=== PATIENT | male | born 1940 | race Hispanic/Latino ===

== ENCOUNTER 2017-04-17 10:07 | Emergency (ER) | payer OTHER, MEDICARE ==
[2017-04-17 11:00] LABS: BASOPHILS % (AUTO) 0.3 % (0.0-5.0); EOSINOPHILS % (AUTO) 2.1 % (0.0-8.0); HEMATOCRIT 34.2 % (42-54); MEAN CORPUSCULAR HEMOGLOBIN 28.1 pg (27.0-33.0); MEAN CORPUSCULAR VOLUME 82.8 fL (79-99); MONOCYTES % (AUTO) 11.7 % (3.0-13.0); NEUTROPHILS % (AUTO) 80.5 % (40.0-77.0); PLATELET COUNT (AUTO) 233 K/uL (130-400); RED BLOOD CELL COUNT(AUTO) 4.13 MIL/uL (4.50-6.20); RED CELL DISTRIBUTION WIDTH 16.1 % (11.0-15.5); WHITE BLOOD COUNT (AUTO) 10.7 K/uL (4.8-10.8)
[2017-04-17 11:01] LABS: LYMPHOCYTES % (AUTO) 5.4 % (21.0-51.0)
[2017-04-17 11:12] LABS: CREATININE 2.3 mg/dL (0.5-1.5); POTASSIUM 4.6 mmol/L (3.5-5.1)
[2017-04-17 11:17] LABS: ALBUMIN 3.4 g/dL (3.5-5.0); BILIRUBIN,TOTAL 0.7 mg/dL (0.2-1.0); TOTAL PROTEIN, SERUM 7.7 g/dL (6.0-8.3)
[2017-04-17] MEDS ORDERED: SODIUM CHLORIDE 0.9% 1000ML 1,000 ML IV ONE (12:45)
== END 2017-04-17 14:13 | disposition home or self-care (01) ==
LOC: EDH 10:07
DX: J20.9 Acute bronchitis, unspecified (principal); R53.1 Weakness; I10 Essential (primary) hypertension; K21.9 Gastro-esophageal reflux disease without esophagitis
CPT/HCPCS: 36415; 80053; 85025; 96360; 99284; J7030

== ENCOUNTER → 2018-11-22 | Outpatient (CLI) | payer OTHER, MEDICARE | END | disposition home or self-care (01) | LOC: SHCH 10:28 | PROVIDERS: ATTEND Internal Medicine Cardiovascular Disease | DX: I87.2 Venous insufficiency (chronic) (peripheral) (principal); R60.9 Edema, unspecified | CPT/HCPCS: 93970 ==

== ENCOUNTER → 2020-10-03 | Outpatient (CLI) | payer OTHER, MEDICARE ==
[~2020-10-03] MED LIST: AEC81 PO; AMIL5TAB8 PO; ATOR20TA65 PO; BISA5TAB12 PO; CARV6.25 PO; CHLO25TA3 PO; CYCL30DR OU; ESOM40CA54 PO; HYDR12.54 PO; LINA145C PO; LORA10CA9 PO; LOTE55OS OU; LUBI24CA2 PO; PIND5 PO; PREG225C7 PO
== END | disposition home or self-care (01) ==
LOC: SHCH 08:47
PROVIDERS: ATTEND Internal Medicine Cardiovascular Disease
DX: L89.620 Pressure ulcer of left heel, unstageable (principal)
CPT/HCPCS: 93925

== ENCOUNTER → 2021-01-20 | Outpatient (CLI) | payer OTHER, MEDICARE | END | disposition home or self-care (01) | LOC: RAH 12:34 | PROVIDERS: ATTEND Orthopaedic Surgery | DX: M16.11 Unilateral primary osteoarthritis, right hip (principal) | CPT/HCPCS: 73700 ==

== ENCOUNTER 2021-06-08 05:55 | Observation (INO) | payer OTHER, MEDICARE ==
[2021-06-03 12:29] LABS: BASOPHILS % (AUTO) 0.8 % (0.0-5.0); EOSINOPHILS % (AUTO) 12.4 % (0.0-8.0); HEMATOCRIT 32.3 % (42-54); LYMPHOCYTES % (AUTO) 17.8 % (21.0-51.0); MEAN CORPUSCULAR HEMOGLOBIN 28.6 pg (27.0-33.0); MEAN CORPUSCULAR HGB CONC 32.5 g/dL (32.0-36.0); MONOCYTES % (AUTO) 9.6 % (3.0-13.0); NEUTROPHILS % (AUTO) 58.9 % (40.0-77.0); PLATELET COUNT (AUTO) 246 K/uL (130-400); RED BLOOD CELL COUNT(AUTO) 3.67 MIL/uL (4.50-6.20); RED CELL DISTRIBUTION WIDTH 15.6 % (11.0-15.5); WHITE BLOOD COUNT (AUTO) 7.8 K/uL (4.8-10.8)
[2021-06-03 12:35] LABS: CREATININE 1.8 mg/dL (0.5-1.5)
[2021-06-03 12:37] LABS: INR 1.05 (0.85-1.15); PROTHROMBIN TIME 11.4 SEC (9.6-11.6)
[2021-06-03 12:38] LABS: PARTIAL THROMBOPLASTIN TIME 29.6 SEC (26.3-35.5)
[2021-06-05 12:53] VITALS: BP 185/77
[2021-06-08] VITALS (18 sets, daily range): BP systolic 129–157; BP diastolic 52–85
[~2021-06-08] VITALS: Ht 177.8 cm; Wt 107.9 kg
[~2021-06-08 05:55] MED LIST changes: -AEC81 PO; -AMIL5TAB8 PO; +AMLO-258 PO; -BISA5TAB12 PO; -CARV6.25 PO; -CHLO25TA3 PO; -CYCL30DR OU; -ESOM40CA54 PO; +FLUO10CA21 PO; -LINA145C PO; -LORA10CA9 PO; -LOTE55OS OU; -LUBI24CA2 PO; +MEMA5TAB42 PO; +RIVA2.5T PO; +TAMS-1 PO; +TYL3B PO
[2021-06-08] MEDS ORDERED: TRANEXAMIC ACID 3,000 MG in 0.9% NACL 250ML 250 ML TP SCH (06:00)
[2021-06-08] MEDS ORDERED: CEFAZOLIN SODIUM 1 GM VIAL IVP SCH (06:00)
[2021-06-08] MEDS: LACTATED RINGERS 1000ML 1,000 ML IV SCH ×2 (06:21→13:00)
[2021-06-08] MEDS ORDERED: TRANEXAMIC ACID 1000MG/10ML ONE (07:05)
[2021-06-08] MEDS ORDERED: ROPIVACAINE 0.5% 5MG/ML 30ML IJ ONE (07:22)
[2021-06-08] MEDS ORDERED: PROPOFOL 1000 MG/100 ML 200 ML IV ONE (07:22)
[2021-06-08] MEDS ORDERED: LIDOCAINE PF 100MG/5ML (2%) SYRINGE 5ML ONE (07:27)
[2021-06-08] MEDS ORDERED: MIDAZOLAM HCL 1 MG/ML 2ML VIAL ONE (07:27)
[2021-06-08] MEDS ORDERED: ROCURONIUM 10MG/1ML SYR 10 MG/ML ML ONE ×2 (07:28→08:21)
[2021-06-08] MEDS ORDERED: PROPOFOL 10 MG/ML 20ML VIAL IV ONE (07:28)
[2021-06-08] MEDS: 0.9%NACL 1000ML 1,000 ML IV SCH ×2 (08:00→18:07)
[2021-06-08] MEDS ORDERED: HYDROCODONE/ACETAMINOPHEN 10/325 MG TAB PO PRN (08:00)
[2021-06-08] MEDS: ACETAMINOPHEN 500 MG TABLET PO SCH ×2 (08:00→15:52)
[2021-06-08] MEDS ORDERED: MORPHINE 4 MG SYG IVP PRN (08:00)
[2021-06-08] MEDS ORDERED: KCL 20 MEQ ERTAB PO PRN (08:00)
[2021-06-08] MEDS ORDERED: ONDANSETRON 4MG INJ IVP PRN (08:00)
[2021-06-08] MEDS ORDERED: LIDOCAINE HCL-MPF 1% 2ML VIAL IV PRN (08:00)
[2021-06-08] MEDS ORDERED: HYDROCODONE/ACETAMINOPHEN 5/325 MG TAB PO PRN (08:00)
[2021-06-08] MEDS ORDERED: POTASSIUM CHLORIDE 20MEQ/100ML 100 ML IV PRN (08:00)
[2021-06-08] MEDS ORDERED: POTASSIUM CHLORIDE 10% ELIXIR 20 MEQ/15 ML UDCUP PO PRN (08:00)
[2021-06-08] MEDS: ASPIRIN 81 MG EC TAB PO SCH ×2 (09:00→21:14)
[2021-06-08] MEDS: HYDROCHLOROTHIAZIDE 25 MG TABLET PO SCH (09:00)
[2021-06-08] MEDS: MEMANTINE HCL 5 MG TABLET PO SCH (09:00)
[2021-06-08] MEDS: FLUOXETINE HCL 10 MG CAPSULE PO SCH (09:00)
[2021-06-08] MEDS: AMLODIPINE 5 MG TAB PO SCH (09:00)
[2021-06-08] MEDS: PREGABALIN 25 MG CAP PO SCH ×2 (09:00→21:15)
[2021-06-08] MEDS: POLYETHYLENE GLYCOL 3350 17 GM POWD.PACK PO SCH (09:00)
[2021-06-08] MEDS: FAMOTIDINE 20MG TAB PO SCH (09:00)
[2021-06-08] MEDS: PINDOLOL 5 MG TAB PO SCH ×2 (09:00→21:00)
[2021-06-08] MEDS ORDERED: PHENYLEPHRINE HCL 10 MG/ML 1ML VIAL IV ONE (09:19)
[2021-06-08] MEDS ORDERED: NEOSTIGMINE 5MG/5ML SYR IV ONE (09:58)
[2021-06-08] MEDS ORDERED: GLYCOPYRROLATE 1 MG/5 ML SYRINGE ONE (09:58)
[2021-06-08] MEDS ORDERED: DEXAMETHASONE SOD PHOSPHATE 10MG/ML 1ML VIAL ONE (10:02)
[2021-06-08] MEDS: TRAMADOL HCL 50 MG TABLET PO SCH ×2 (12:00→18:08)
[2021-06-08] MEDS: CEFAZOLIN SODIUM 1 GM VIAL IVP SCH ×2 (15:52→21:14)
[2021-06-08] MEDS: TAMSULOSIN HCL 0.4 MG CAP.ER.24H PO SCH (21:14)
[2021-06-09] VITALS: BP 149/65
[2021-06-09] MEDS: ACETAMINOPHEN 500 MG TABLET PO SCH ×3 (00:15→16:46)
[2021-06-09] MEDS: TRAMADOL HCL 50 MG TABLET PO SCH ×4 (00:16→18:36)
[2021-06-09 04:00] VITALS: BP 121/50
[2021-06-09] MEDS: 0.9%NACL 1000ML 1,000 ML IV SCH (04:00)
[2021-06-09 04:29] LABS: HEMATOCRIT 30.4 % (42-54); MEAN CORPUSCULAR HEMOGLOBIN 27.7 pg (27.0-33.0); MEAN CORPUSCULAR HGB CONC 31.9 g/dL (32.0-36.0); MEAN CORPUSCULAR VOLUME 86.9 fL (79-99); RED BLOOD CELL COUNT(AUTO) 3.5 MIL/uL (4.50-6.20); RED CELL DISTRIBUTION WIDTH 14.9 % (11.0-15.5); WHITE BLOOD COUNT (AUTO) 14.5 K/uL (4.8-10.8)
[2021-06-09 04:44] LABS: CREATININE 1.8 mg/dL (0.5-1.5); POTASSIUM 3.8 mmol/L (3.5-5.1)
[2021-06-09 07:59] VITALS: BP 143/56
[2021-06-09] MEDS: FAMOTIDINE 20MG TAB PO SCH (08:42)
[2021-06-09] MEDS: FLUOXETINE HCL 10 MG CAPSULE PO SCH (08:42)
[2021-06-09] MEDS: PREGABALIN 25 MG CAP PO SCH ×2 (08:42→20:52)
[2021-06-09] MEDS: AMLODIPINE 5 MG TAB PO SCH (08:42)
[2021-06-09] MEDS: MEMANTINE HCL 5 MG TABLET PO SCH (08:42)
[2021-06-09] MEDS: POLYETHYLENE GLYCOL 3350 17 GM POWD.PACK PO SCH (08:43)
[2021-06-09] MEDS: HYDROCHLOROTHIAZIDE 25 MG TABLET PO SCH (08:43)
[2021-06-09] MEDS: ASPIRIN 81 MG EC TAB PO SCH ×2 (08:43→20:52)
[2021-06-09 11:58] VITALS: BP 126/51
[2021-06-09] MEDS: PINDOLOL 5 MG TAB PO SCH ×2 (12:24→20:54)
[2021-06-09 16:38] VITALS: BP 132/63
[2021-06-09 20:00] VITALS: BP 127/52
[2021-06-09] MEDS: TAMSULOSIN HCL 0.4 MG CAP.ER.24H PO SCH (20:52)
[2021-06-10] VITALS: BP 154/69
[2021-06-10] MEDS: ACETAMINOPHEN 500 MG TABLET PO SCH ×3 (00:26→16:00)
[2021-06-10] MEDS: TRAMADOL HCL 50 MG TABLET PO SCH ×4 (00:26→17:35)
[2021-06-10 05:02] VITALS: BP 117/49
[2021-06-10 08:00] VITALS: BP 131/58
[2021-06-10] MEDS: AMLODIPINE 5 MG TAB PO SCH ×2 (09:00→10:36)
[2021-06-10] MEDS: HYDROCHLOROTHIAZIDE 25 MG TABLET PO SCH ×2 (09:00→10:36)
[2021-06-10] MEDS: PREGABALIN 25 MG CAP PO SCH (09:00)
[2021-06-10] MEDS: PINDOLOL 5 MG TAB PO SCH ×2 (09:00→10:36)
[2021-06-10] MEDS: ASPIRIN 81 MG EC TAB PO SCH (10:35)
[2021-06-10] MEDS: FAMOTIDINE 20MG TAB PO SCH (10:36)
[2021-06-10] MEDS: MEMANTINE HCL 5 MG TABLET PO SCH (10:36)
[2021-06-10] MEDS: FLUOXETINE HCL 10 MG CAPSULE PO SCH (10:36)
[2021-06-10 11:20] VITALS: BP 96/51
[2021-06-10 11:51] VITALS: BP 118/60
[2021-06-10 16:32] VITALS: BP 131/58
[2021-06-10] MEDS: POLYETHYLENE GLYCOL 3350 17 GM POWD.PACK PO SCH (17:08)
[2021-06-11] MEDS ORDERED: BISACODYL 10 MG SUPP.RECT RC PRN (08:00)
== END 2021-06-10 18:40 ==
LOC: DAH 05:55 → DAHIP 05:56 → DAH 05:56 → 4BH 12:00
PROVIDERS: ADMIT Orthopaedic Surgery; ATTEND Orthopaedic Surgery
DX: M17.11 Unilateral primary osteoarthritis, right knee (principal); Z20.822 Contact with and (suspected) exposure to COVID-19; M19.90 Unspecified osteoarthritis, unspecified site; I12.9 Hypertensive chronic kidney disease with stage 1 through stage 4 chronic kidney disease, or unspecified chronic kidney disease; N18.9 Chronic kidney disease, unspecified; E78.00 Pure hypercholesterolemia, unspecified; Z79.82 Long term (current) use of aspirin; Z79.899 Other long term (current) drug therapy; Z98.890 Other specified postprocedural states
CPT/HCPCS: 27447; S2900; 36415; 64445; 64447; 64450; 76942; 80048; 85025; 85027; 85610; 85730; 87635; 87641; 93005; 96374; 96376; 97039; A4344; C9803; G0378; J0690; J1100; J2001; J2250; J2270; J2370; J2704; J2710; J2795; J3490; J7030; J7050; J7120

== ENCOUNTER → 2021-07-02 | Outpatient (CLI) | payer OTHER, MEDICARE | END | disposition home or self-care (01) | LOC: RAH 10:39 | PROVIDERS: ATTEND Orthopaedic Surgery | DX: R60.0 Localized edema (principal); M79.604 Pain in right leg; Z96.651 Presence of right artificial knee joint | CPT/HCPCS: 93971 ==

== ENCOUNTER 2022-01-29 18:01 | Emergency (ER) | payer OTHER, MEDICARE ==
[~2022-01-29] VITALS: Ht 167.6 cm; Wt 86.2 kg
[2022-01-29 18:35] LABS: BASOPHILS % (AUTO) 0.2 % (0.0-5.0); EOSINOPHILS % (AUTO) 2.3 % (0.0-8.0); HEMATOCRIT 33.9 % (42-54); LYMPHOCYTES % (AUTO) 8.6 % (21.0-51.0); MEAN CORPUSCULAR HEMOGLOBIN 28.2 pg (27.0-33.0); MEAN CORPUSCULAR HGB CONC 32.7 g/dL (32.0-36.0); MEAN CORPUSCULAR VOLUME 86.3 fL (79-99); MONOCYTES % (AUTO) 9.7 % (3.0-13.0); NEUTROPHILS % (AUTO) 78.4 % (40.0-77.0); PLATELET COUNT (AUTO) 301 K/uL (130-400); RED BLOOD CELL COUNT(AUTO) 3.93 MIL/uL (4.50-6.20); RED CELL DISTRIBUTION WIDTH 16.4 % (11.0-15.5); WHITE BLOOD COUNT (AUTO) 14.3 K/uL (4.8-10.8)
[2022-01-29 18:37] LABS: APPEARANCE,URINE CLEAR (CLEAR); BILIRUBIN,URINE NEGATIVE (NEGATIVE); COLOR,URINE COLORLESS (YELLOW); GLUCOSE, URINE (UA) NEGATIVE (NEGATIVE); KETONES,URINE NEGATIVE (NEGATIVE); LEUKOCYTE ESTERASE ,URINE NEGATIVE Leu/uL (NEGATIVE); NITRATE,URINE NEGATIVE (NEGATIVE); OCCULT BLOOD,URINE NEGATIVE (NEGATIVE); PROTEIN,URINE NEGATIVE (NEGATIVE); UROBILINOGEN,URINE 0.2 mg/dL (0.2-1.0)
[2022-01-29 18:43] LABS: CREATININE 2.1 mg/dL (0.5-1.5); POTASSIUM 4.3 mmol/L (3.5-5.1)
[2022-01-29 18:46] LABS: INR 0.96 (0.85-1.15); PROTHROMBIN TIME 10.5 SEC (9.6-11.6)
[2022-01-29 18:47] LABS: PARTIAL THROMBOPLASTIN TIME 27.3 SEC (26.3-35.5)
[2022-01-29 18:48] LABS: ALBUMIN 3.4 g/dL (3.5-5.0); TOTAL PROTEIN, SERUM 7.5 g/dL (6.0-8.3)
[2022-01-30 02:18] VITALS: BP 127/50
[2022-02-01] MEDS ORDERED: ATOR10 PO (19:46)
[2022-02-01] MEDS ORDERED: PREG225C7 PO (19:46)
[2022-02-01] MEDS ORDERED: DOXA8TAB81 PO (19:46)
[2022-02-01] MEDS ORDERED: FLUO10CA21 PO (19:46)
[2022-02-01] MEDS ORDERED: MEMA5TAB42 PO (19:46)
[2022-02-01] MEDS ORDERED: FURO20TA4 PO (19:46)
[2022-02-01] MEDS ORDERED: AMLO-258 PO (19:46)
[2022-02-01] MEDS ORDERED: PIND10TA2 PO (19:46)
[2022-02-05] MEDS ORDERED: AMOX1TAB16 PO (10:03)
[2022-02-05] MEDS ORDERED: IPRNEB IH (10:03)
[2022-02-05] MEDS ORDERED: PANT40TA PO (10:03)
== END 2022-01-30 02:30 | disposition home or self-care (01) ==
LOC: EDH 18:01
DX: S09.90XA Unspecified injury of head, initial encounter (principal); M54.2 Cervicalgia; W18.39XA Other fall on same level, initial encounter; Y93.89 Activity, other specified; Y92.89 Other specified places as the place of occurrence of the external cause; Y99.8 Other external cause status; Z20.822 Contact with and (suspected) exposure to COVID-19
CPT/HCPCS: 99285; 70450 ×2; 87635; 84484; 80053; 85025; 85610; 85730; 87804 ×2; 81003; 36415; 72125; 93005; C9803

== ENCOUNTER 2022-09-07 10:45 | Emergency (ER) | payer OTHER, MEDICARE ==
[~2022-09-07] VITALS: Ht 170.2 cm; Wt 90.7 kg
[~2022-09-07 10:45] MED LIST changes: +AMOX1TAB16 PO; +ATOR10 PO; -ATOR20TA65 PO; +DOXA8TAB81 PO; -HYDR12.54 PO; +IPRNEB IH; +PANT40TA PO; +PIND10TA2 PO; -PIND5 PO; -RIVA2.5T PO; -TAMS-1 PO; -TYL3B PO
[2022-09-07 11:30] LABS: BASOPHILS % (AUTO) 0.7 % (0.0-5.0); EOSINOPHILS % (AUTO) 7.9 % (0.0-8.0); HEMATOCRIT 36.7 % (42-54); LYMPHOCYTES % (AUTO) 20.8 % (21.0-51.0); MEAN CORPUSCULAR HGB CONC 31.9 g/dL (32.0-36.0); MEAN CORPUSCULAR VOLUME 87.8 fL (79-99); MONOCYTES % (AUTO) 10.4 % (3.0-13.0); NEUTROPHILS % (AUTO) 59.9 % (40.0-77.0); PLATELET COUNT (AUTO) 241 K/uL (130-400); RED BLOOD CELL COUNT(AUTO) 4.18 MIL/uL (4.50-6.20); RED CELL DISTRIBUTION WIDTH 15.8 % (11.0-15.5); WHITE BLOOD COUNT (AUTO) 7.1 K/uL (4.8-10.8)
[2022-09-07 11:44] LABS: ALBUMIN 4.1 g/dL (3.5-5.0); CREATININE 2.3 mg/dL (0.5-1.5)
[2022-09-07 12:25] LABS: APPEARANCE,URINE CLEAR (CLEAR); BILIRUBIN,URINE NEGATIVE (NEGATIVE); COLOR,URINE LIGHT-YELLOW (YELLOW); GLUCOSE, URINE (UA) NEGATIVE (NEGATIVE); KETONES,URINE NEGATIVE (NEGATIVE); LEUKOCYTE ESTERASE ,URINE NEGATIVE Leu/uL (NEGATIVE); NITRATE,URINE NEGATIVE (NEGATIVE); OCCULT BLOOD,URINE NEGATIVE (NEGATIVE); PROTEIN,URINE 30 mg/dL (NEGATIVE); UROBILINOGEN,URINE 0.2 mg/dL (0.2-1.0)
[2022-09-07 12:39] LABS: MUCUS,URINE RARE LPF (None Seen); WBC,URINE 0-1 /HPF (0-1)
[2022-09-07] MEDS ORDERED: CEFU500T67 PO (15:20)
[2022-09-07 17:00] VITALS: BP 179/81
== END 2022-09-07 17:05 | disposition home or self-care (01) ==
LOC: EDH 10:45
DX: R41.82 Altered mental status, unspecified (principal); E11.22 Type 2 diabetes mellitus with diabetic chronic kidney disease; N18.30 Chronic kidney disease, stage 3 unspecified; I48.91 Unspecified atrial fibrillation; E78.00 Pure hypercholesterolemia, unspecified; Z79.899 Other long term (current) drug therapy
CPT/HCPCS: 36415; 70450; 71045; 80053; 81001; 82550; 83880; 84145; 84484; 85025; 87088; 93005

== ENCOUNTER 2022-12-09 22:02 | Emergency (ER) | payer OTHER, MEDICARE ==
[~2022-12-09] VITALS: Ht 175.3 cm; Wt 104.3 kg
[~2022-12-09 22:02] MED LIST changes: +CEFU500T67 PO
[2022-12-09 22:28] LABS: BASOPHILS # (AUTO) 0.06 K/uL (0.00-0.20); BASOPHILS % (AUTO) 0.7 % (0.0-5.0); EOSINOPHILS # (AUTO) 0.64 K/uL (0.00-0.70); EOSINOPHILS % (AUTO) 7.2 % (0.0-8.0); HEMATOCRIT 33.9 % (42-54); IMMATURE GRANULOCYTE ABSOLUTE 0.03 K/uL (0-1); LYMPHOCYTES # (AUTO) 1.7 K/uL (1.0-4.8); LYMPHOCYTES % (AUTO) 18.9 % (21.0-51.0); MEAN CORPUSCULAR HGB CONC 31.6 g/dL (32.0-36.0); MEAN CORPUSCULAR VOLUME 88.7 fL (79-99); MONOCYTES % (AUTO) 10.9 % (3.0-13.0); NEUTROPHILS # (AUTO) 5.5 K/uL (1.8-7.7); PLATELET COUNT (AUTO) 203 K/uL (130-400); RED BLOOD CELL COUNT(AUTO) 3.82 MIL/uL (4.50-6.20); RED CELL DISTRIBUTION WIDTH 15.6 % (11.0-15.5); WHITE BLOOD COUNT (AUTO) 8.9 K/uL (4.8-10.8)
[2022-12-09] MEDS ORDERED: HYDRALAZINE 20MG/ML VIAL IV ONE (22:30)
[2022-12-09] MEDS ORDERED: APIX2.5T PO (22:35)
[2022-12-09] MEDS ORDERED: FURO20TA4 PO (22:35)
[2022-12-09] MEDS ORDERED: ASPI-1197 PO (22:35)
[2022-12-09] MEDS ORDERED: CARB1TAB35 PO (22:35)
[2022-12-09] MEDS ORDERED: DONE5TAB33 PO (22:35)
[2022-12-09 22:42] LABS: POTASSIUM 4.1 mmol/L (3.5-5.1)
[2022-12-09 22:46] LABS: ALBUMIN 3.6 g/dL (3.5-5.0); BILIRUBIN,TOTAL 0.4 mg/dL (0.2-1.0); TOTAL PROTEIN, SERUM 7.6 g/dL (6.0-8.3)
[2022-12-09 22:47] VITALS: O2SAT 99
[2022-12-09 23:10] LABS: B-TYPE NATRIURETIC PEPTIDE 228 pg/mL (0-100)
[2022-12-09 23:22] LABS: INR < 0.93 (0.85-1.15); PROTHROMBIN TIME 10.8 SEC (9.6-11.6)
[2022-12-09 23:24] LABS: PARTIAL THROMBOPLASTIN TIME 25.5 SEC (26.3-35.5)
[2022-12-10 00:53] VITALS: BP 164/74; PULSE 66; RESP 18
== END 2022-12-10 01:15 | disposition home or self-care (01) ==
LOC: EDH 22:02
DX: I10 Essential (primary) hypertension (principal); G44.209 Tension-type headache, unspecified, not intractable; I48.91 Unspecified atrial fibrillation; E11.9 Type 2 diabetes mellitus without complications; E78.00 Pure hypercholesterolemia, unspecified; Z79.01 Long term (current) use of anticoagulants; Z79.82 Long term (current) use of aspirin; Z79.899 Other long term (current) drug therapy
CPT/HCPCS: 99285; 96374; 70450; 71045; 84484; 80053; 83880; 85025; 85610; 85730; 36415; 93005 ×2; J0360

== ENCOUNTER 2023-12-02 15:30 | Inpatient (IN) | payer OTHER, MEDICARE ==
[~2023-12-02] VITALS: Ht 167.6 cm; Wt 104.8 kg
[~2023-12-02 15:30] MED LIST changes: +APIX2.5T PO; +ASPI-1197 PO; +CARB1TAB35 PO; +DONE5TAB33 PO; +FURO20TA4 PO; +MEMA5TAB16 PO; -MEMA5TAB42 PO; -PREG225C7 PO; +PREG225C8 PO
[2023-12-02 15:55] LABS: BASOPHILS # (AUTO) 0.05 K/uL (0.00-0.20); BASOPHILS % (AUTO) 0.7 % (0.0-5.0); EOSINOPHILS % (AUTO) 8.3 % (0.0-8.0); HEMATOCRIT 33.3 % (42-54); IMMATURE GRANULOCYTE ABSOLUTE 0.02 K/uL (0-1); LYMPHOCYTES # (AUTO) 1.3 K/uL (1.0-4.8); LYMPHOCYTES % (AUTO) 18.1 % (21.0-51.0); MEAN CORPUSCULAR HGB CONC 32.7 g/dL (32.0-36.0); MEAN CORPUSCULAR VOLUME 88.6 fL (79-99); MONOCYTES # (AUTO) 0.9 K/uL (0.1-1.0); MONOCYTES % (AUTO) 12.1 % (3.0-13.0); NEUTROPHILS # (AUTO) 4.4 K/uL (1.8-7.7); NEUTROPHILS % (AUTO) 60.5 % (40.0-77.0); PLATELET COUNT (AUTO) 258 K/uL (130-400); RED BLOOD CELL COUNT(AUTO) 3.76 MIL/uL (4.50-6.20); RED CELL DISTRIBUTION WIDTH 15.4 % (11.0-15.5); WHITE BLOOD COUNT (AUTO) 7.2 K/uL (4.8-10.8)
[2023-12-02 16:09] LABS: CREATININE 2.3 mg/dL (0.5-1.3); POTASSIUM 4.4 mmol/L (3.5-5.1)
[2023-12-02] MEDS: hydrALAZine 20MG/ML VIAL IV ONE ×2 (16:19→20:07)
[2023-12-02 17:20] LABS: APPEARANCE,URINE CLEAR (CLEAR); BILIRUBIN,URINE NEGATIVE (NEGATIVE); COLOR,URINE COLORLESS (YELLOW); GLUCOSE, URINE (UA) NEGATIVE (NEGATIVE); KETONES,URINE NEGATIVE (NEGATIVE); LEUKOCYTE ESTERASE ,URINE NEGATIVE Leu/uL (NEGATIVE); NITRATE,URINE NEGATIVE (NEGATIVE); OCCULT BLOOD,URINE MODERATE (NEGATIVE); PROTEIN,URINE NEGATIVE (NEGATIVE); UROBILINOGEN,URINE 0.2 mg/dL (0.2-1.0)
[2023-12-02 17:26] LABS: ADD UA MICROSCOPIC YES
[2023-12-02 17:30] LABS: RBC,URINE 0-1 /HPF (0-1); WBC,URINE 0-1 /HPF (0-1)
[2023-12-02] MEDS: NALoxone HCL 0.4 MG/1 ML ML IVP SCH (20:21)
[2023-12-02] MEDS: 0.9%NACL 1000ML 1,000 ML IV SCH (22:21)
[2023-12-02] MEDS: DOXYCYCLINE 100MG+NS 250ML 250 ML IV SCH (22:25)
[2023-12-02] MEDS: CEFTRIAXONE 2GM VIAL IVPB SCH (22:26)
[2023-12-02] MEDS ORDERED: ALBUTEROL 0.083% 2.5 MG/3 ML INH IH PRN (22:30)
[2023-12-02 22:41] LABS: AMPHET/METH SCREEN,URINE NEGATIVE (NEGATIVE); BARBITURATE SCREEN, URINE NEGATIVE (NEGATIVE); BENZODIAZEPINES SCREEN,URINE NEGATIVE (NEGATIVE); CANNABINOID SCREEN,URINE NEGATIVE (NEGATIVE); COCAINE SCREEN,URINE NEGATIVE (NEGATIVE); OPIATE SCREEN,URINE POSITIVE (NEGATIVE); PHENCYCLIDINE SCREEN,URINE NEGATIVE (NEGATIVE)
[2023-12-02 22:53] LABS: CREATININE,URINE RANDOM 32.33 mg/dL (30-135); PROTEIN,URINE RANDOM 9.2 mg/dL (0-11.9); SODIUM,URINE RANDOM 41 mmol/l (40-220)
[2023-12-02 22:54] LABS: CHLORIDE,URINE RANDOM 53 mmol/L (110-250); POTASSIUM,URINE RANDOM 17 mmol/L (25-125)
[2023-12-02] MEDS ORDERED: MIRA25TA5 PO (23:00)
[2023-12-02 23:19] LABS: INFLUENZA TYPE A Negative For Type A (NEGATIVE); INFLUENZA TYPE B Negative For Type B (NEGATIVE)
[2023-12-02] MEDS ORDERED: ACET-2079 PO (23:35)
[2023-12-02] MEDS ORDERED: APIX2.5T PO (23:35)
[2023-12-02] MEDS ORDERED: BACL10TA PO (23:35)
[2023-12-02] MEDS ORDERED: GABA-529 PO (23:35)
[2023-12-02 23:58] VITALS: PULSE 61; RESP 18; O2SAT 100
[2023-12-03] VITALS (9 sets, daily range): BP systolic 115–182; BP diastolic 62–104; PULSE 61–182; RESP 16–20; TEMP 98.9–100.1; O2SAT 98–99
[2023-12-03] MEDS ORDERED: DEXTROSE 50%-WATER 50 ML DISP.SYRIN IV PRN (03:30)
[2023-12-03] MEDS ORDERED: GLUCAGON 1MG KIT 1 MG ML IM PRN (03:30)
[2023-12-03 05:19] LABS: BASOPHILS # (AUTO) 0.03 K/uL (0.00-0.20); BASOPHILS % (AUTO) 0.3 % (0.0-5.0); EOSINOPHILS # (AUTO) 0.23 K/uL (0.00-0.70); EOSINOPHILS % (AUTO) 2.2 % (0.0-8.0); HEMATOCRIT 32.6 % (42-54); IMMATURE GRANULOCYTE ABSOLUTE 0.04 K/uL (0-1); LYMPHOCYTES # (AUTO) 1.4 K/uL (1.0-4.8); LYMPHOCYTES % (AUTO) 13.1 % (21.0-51.0); MEAN CORPUSCULAR HEMOGLOBIN 28.3 pg (27.0-33.0); MEAN CORPUSCULAR HGB CONC 32.5 g/dL (32.0-36.0); MEAN CORPUSCULAR VOLUME 87.2 fL (79-99); MONOCYTES # (AUTO) 1.1 K/uL (0.1-1.0); MONOCYTES % (AUTO) 10.1 % (3.0-13.0); NEUTROPHILS # (AUTO) 7.8 K/uL (1.8-7.7); NEUTROPHILS % (AUTO) 73.9 % (40.0-77.0); PLATELET COUNT (AUTO) 269 K/uL (130-400); RED BLOOD CELL COUNT(AUTO) 3.74 MIL/uL (4.50-6.20); RED CELL DISTRIBUTION WIDTH 15.6 % (11.0-15.5); WHITE BLOOD COUNT (AUTO) 10.6 K/uL (4.8-10.8)
[2023-12-03 05:50] LABS: CREATININE 2.2 mg/dL (0.5-1.3); MAGNESIUM 1.9 mg/dL (1.80-2.40); PHOSPHORUS 2.8 mg/dL (2.5-4.9); POTASSIUM 4.4 mmol/L (3.5-5.1); THYROID STIMULATING HORMONE 1.43 uIU/mL (0.36-3.74)
[2023-12-03] MEDS: INSULIN humuLIN R 100 UNIT/ML 3ML SQ SCH (06:00)
[2023-12-03] MEDS: HEParin 5,000 UNIT VIAL SQ SCH (09:19)
[2023-12-03] MEDS: FAMOTIDINE 20MG VIAL IV SCH (09:19)
[2023-12-03] MEDS: tamSULOsin HCL 0.4 MG CAP.ER.24H PO SCH (11:50)
[2023-12-03] MEDS: CARBIDOPA-LEVODOPA 25-100 TAB PO SCH (11:50)
[2023-12-04] VITALS (16 sets, daily range): BP systolic 147–238; BP diastolic 64–111; PULSE 57–77; RESP 16–20; TEMP 97.9–99.4; O2SAT 95–99
[2023-12-04] MEDS: PINDOLOL 5 MG TAB PO SCH (00:20)
[2023-12-04] MEDS: APIXaban 2.5 MG TABLET PO SCH (00:21)
[2023-12-04] MEDS: doNEPEZil HCL 5 MG TAB PO SCH (00:21)
[2023-12-04] MEDS: hydrALAZine 20MG/ML VIAL IV PRN (04:00)
[2023-12-04] MEDS: LAbetaLOL 20MG SYG IV PRN (05:47)
[2023-12-04 05:48] LABS: HEMATOCRIT 34.2 % (42-54); MEAN CORPUSCULAR HEMOGLOBIN 28.2 pg (27.0-33.0); MEAN CORPUSCULAR HGB CONC 32.2 g/dL (32.0-36.0); MEAN CORPUSCULAR VOLUME 87.7 fL (79-99); RED BLOOD CELL COUNT(AUTO) 3.9 MIL/uL (4.50-6.20); RED CELL DISTRIBUTION WIDTH 15.9 % (11.0-15.5); WHITE BLOOD COUNT (AUTO) 7.6 K/uL (4.8-10.8)
[2023-12-04 06:03] LABS: CREATININE 1.9 mg/dL (0.5-1.3); MAGNESIUM 1.9 mg/dL (1.80-2.40); POTASSIUM 3.7 mmol/L (3.5-5.1)
[2023-12-04] MEDS: MEMANtine HCL 5 MG TABLET PO SCH (08:08)
[2023-12-04] MEDS: ASPIRIN 81MG CHEW TAB PO SCH (08:09)
[2023-12-04] MEDS: FLUoxetine HCL 10 MG CAPSULE PO SCH (08:09)
[2023-12-04] MEDS: MIRABEGRON 25 MG PO SCH (08:10)
[2023-12-04] MEDS: GABApentin 100 MG CAPSULE PO SCH (08:10)
[2023-12-04] MEDS: hydrALAZine 25MG TABLET PO SCH (16:27)
[2023-12-04] MEDS: INSULIN humuLIN R 100 UNIT/ML 3ML SQ SCH (20:32)
[2023-12-04] MEDS: acetaMINOPHEN 325 MG TAB PO PRN (23:59)
[2023-12-05] VITALS (12 sets, daily range): BP systolic 145–186; BP diastolic 52–72; PULSE 52–64; RESP 15–20; TEMP 97.8–98.4; O2SAT 94–97
[2023-12-05] MEDS: ENALAPRILAT DIHYDRATE 1.25MG/ML 1ML VIAL IV ONE (04:10)
[2023-12-05] MEDS: hydrALAZine 25MG TABLET PO SCH (14:29)
[2023-12-06] VITALS (7 sets, daily range): BP systolic 156–180; BP diastolic 49–69; PULSE 60–65; RESP 19–20; TEMP 98.2–98.9; O2SAT 96
[2023-12-06 15:12] LABS: CHLAM.PNEUMONIAE IGM TITER <1:10 (Neg:<1:10)
[2023-12-07 21:09] LABS: MYCOPLASMA AB IGM <770 U/mL (0-769)
== END 2023-12-06 17:40 | DRG 689 ==
LOC: EDH 15:30 → OBSVTOIN 22:03 → EDHIP 22:03 → 3BH 12-03 01:41
PROVIDERS: ADMIT Internal Medicine; ATTEND Internal Medicine
DX: N30.00 Acute cystitis without hematuria (principal); G92.8 Other toxic encephalopathy; N17.9 Acute kidney failure, unspecified; E87.1 Hypo-osmolality and hyponatremia; N18.4 Chronic kidney disease, stage 4 (severe); Z20.822 Contact with and (suspected) exposure to COVID-19; E87.8 Other disorders of electrolyte and fluid balance, not elsewhere classified; D63.1 Anemia in chronic kidney disease; I12.9 Hypertensive chronic kidney disease with stage 1 through stage 4 chronic kidney disease, or unspecified chronic kidney disease; K76.89 Other specified diseases of liver; G20.A1 Parkinson's disease without dyskinesia, without mention of fluctuations; F02.80 Dementia in other diseases classified elsewhere, unspecified severity, without behavioral disturbance, psychotic disturbance, mood disturbance, and anxiety; E78.5 Hyperlipidemia, unspecified; N40.0 Benign prostatic hyperplasia without lower urinary tract symptoms; E11.22 Type 2 diabetes mellitus with diabetic chronic kidney disease; E11.40 Type 2 diabetes mellitus with diabetic neuropathy, unspecified; T42.8X5A Adverse effect of antiparkinsonism drugs and other central muscle-tone depressants, initial encounter; Y92.89 Other specified places as the place of occurrence of the external cause
CPT/HCPCS: 36415; 70450; 70551; 71045; 74176; 80048; 80051; 80061; 80305; 81001; 82140; 82330; 82570; 82948; 83735; 84100; 84145; 84156; 84443; 85025; 85027; 86632; 86738; 87040; 87086; 87426; 87449; 87581; 87804; 93306; 96374; 96376; G0378; J0360; J0696; J1644; J2310; J3490; J7030

== ENCOUNTER → 2024-03-09 | Outpatient (CLI) | payer OTHER, MEDICARE ==
[~2024-03-09] MED LIST changes: -AMLO-258 PO; -AMOX1TAB16 PO; -ATOR10 PO; -CEFU500T67 PO; -DOXA8TAB81 PO; -FURO20TA4 PO; +GABA-529 PO; -IPRNEB IH; +MIRA25TA5 PO; -PANT40TA PO; -PREG225C8 PO
[2024-03-09 15:34] LABS: RETICULOCYTE % (AUTO) 1.69 % (0.42-2.23)
[2024-03-09 15:56] LABS: % IRON SATURATION 20.1 % (30-44)
== END | disposition home or self-care (01) ==
LOC: LAB 11:42
PROVIDERS: ATTEND Internal Medicine Cardiovascular Disease
DX: I11.0 Hypertensive heart disease with heart failure (principal); I50.32 Chronic diastolic (congestive) heart failure; E78.00 Pure hypercholesterolemia, unspecified; I73.9 Peripheral vascular disease, unspecified
CPT/HCPCS: 36415; 82270; 82728; 83540; 83550; 85045

== ENCOUNTER → 2024-03-13 | Outpatient (CLI) | payer OTHER, MEDICARE ==
--- NOTE | 2024-03-13 13:23 | HMCIMG ---
CHEST 2VWS REASON: CHRONIC DIASTOLIC HEART FAILURE COMPARISON: 12/03/2023 FINDINGS: Two views of the chest were obtained. Lungs are clear. Heart size is normal. There is no pulmonary vascular congestion. Mediastinum and bony thorax appear unremarkable. IMPRESSION: Normal two view chest x-ray.
== END | disposition home or self-care (01) ==
LOC: LAB 10:26
PROVIDERS: ATTEND Internal Medicine Cardiovascular Disease
DX: I11.0 Hypertensive heart disease with heart failure (principal); I50.32 Chronic diastolic (congestive) heart failure; E78.5 Hyperlipidemia, unspecified
CPT/HCPCS: 71046; 82270

== ENCOUNTER 2024-05-30 06:03 | Day surgery (SDC) | payer OTHER, MEDICARE ==
[~2024-05-30] VITALS: Ht 177.8 cm; Wt 96.6 kg
[2024-05-30] VITALS (11 sets, daily range): BP systolic 123–182; BP diastolic 48–64; PULSE 57–62; RESP 15–18; TEMP 97.1–98.2
[2024-05-30] MEDS ORDERED: PINDOLOL PO (07:23)
[2024-05-30] MEDS ORDERED: HYDR25TA67 PO (07:26)
[2024-05-30] MEDS ORDERED: TAMS-1 PO (07:26)
[2024-05-30] MEDS ORDERED: ATOR10 PO (07:26)
[2024-05-30] MEDS ORDERED: DOXA8TAB81 PO (07:26)
[2024-05-30] MEDS ORDERED: BACL10TA PO (07:26)
[2024-05-30] MEDS ORDERED: LISI2.5T13 PO (07:26)
[2024-05-30] MEDS: 0.9%NACL 1000ML 1,000 ML IV ONE (07:27)
[2024-05-30] MEDS ORDERED: proPOFol 10 MG/ML 20ML VIAL IV ONE (07:57)
--- NOTE | 2024-05-30 09:31 | NUR ---
Full and complete discharge instructions given to Patient and Family both verbally and in writing. Explained GI procedure precautions and follow up. All questions answered. PIV removed with catheter tip intact. Home with Family W/C to POV.
== END 2024-05-30 09:30 | disposition home or self-care (01) ==
LOC: DAH 06:03 → ENDO 06:03
PROVIDERS: ATTEND Internal Medicine Gastroenterology
DX: D50.9 Iron deficiency anemia, unspecified (principal); D12.3 Benign neoplasm of transverse colon; K59.01 Slow transit constipation; K31.89 Other diseases of stomach and duodenum; I12.9 Hypertensive chronic kidney disease with stage 1 through stage 4 chronic kidney disease, or unspecified chronic kidney disease; N18.9 Chronic kidney disease, unspecified; K44.9 Diaphragmatic hernia without obstruction or gangrene; K21.9 Gastro-esophageal reflux disease without esophagitis; Z86.0100 Personal history of colon polyps, unspecified; G20.A1 Parkinson's disease without dyskinesia, without mention of fluctuations; E78.5 Hyperlipidemia, unspecified; Z79.899 Other long term (current) drug therapy
CPT/HCPCS: 45380; 43239; J7030; J2704; A4620; A4215 ×2; A4223; A4222; A4221; A4663; A4606; J3490